=== PATIENT | female | born 1955 | race Caucasian/White ===

== ENCOUNTER 2020-07-03 13:47 | Emergency (ER) | payer OTHER ==
--- NOTE | 2020-07-03 14:04 | PDOC ---
Rapid Medical Evaluation Time Seen by Provider: 07/03/20 14:00 Medical Evaluation: 07/03/20 14:02 I have performed a brief in-person evaluation of this patient. CC: left calf pain. Cam boot x2 weeks 2/2 achilles tear PE: Left calf tenderness and swelling Orders: duplex dopplers Patient will proceed to ED for further evaluation. Discharge Disposition - Diagnosis Left leg swelling - Referrals - Patient Instructions - Post Discharge Activity
--- NOTE | 2020-07-03 14:05 | PDOC ---
History of Present Illness - General Chief Complaint: Pain Stated Complaint: SENT BY PCP Time Seen by Provider: 07/03/20 14:00 - History of Present Illness Initial Comments: 65 YOF h/o diabetes, hypothyroidism and achilles tendon rupture presents from PCP for left leg pain and swelling of 1 week duration. Patient reports leg and foot have been immobilized in compression boot for two weeks since tendon rupture. She has expected the swelling to decrease from her injury but has observed it to increase steadily over this period. She presented to PCP today who sent her to ER for DVT r/o. Denies CP, SOB, n/v/d, fever or chills, recent sick contacts, prolonged travel, h/o cancer, use of hormones or OCPs. Constitutional: No Weight Change, No Fever, No Chills, No Night Sweats, No Fatigue, No Malaise ENT/Mouth: No Hearing Changes, No Ear Pain, No Nasal Congestion, No Sinus Pain, No Hoarseness, No sore throat, No Rhinorrhea, No Swallowing Difficulty Eyes: No Eye Pain, No Swelling, No Redness, No Foreign Body, No Discharge, No Vision Changes Cardiovascular: No Chest Pain, No SOB, No PND, No Dyspnea on Exertion, No Orthopnea, No Claudication, No Edema, No Palpitations Respiratory: No Cough, No Sputum, No Wheezing, No Smoke Exposure, No Dyspnea Gastrointestinal: No Nausea, No Vomiting, No Diarrhea, No Constipation, No Pain, No Heartburn, No Anorexia, No Dysphagia, No Hematochezia, No Melena, No Flatulence, No Jaundice Genitourinary: No Dysmenorrhea, No DUB, No Dyspareunia, No Dysuria, No Urinary Frequency, No Hematuria, No Urinary Incontinence, No Urgency, No Flank Pain, No Urinary Flow Changes, No Hesitancy Musculoskeletal: No Arthralgias, No Myalgias, No Joint Swelling, No Joint Stiffness, No Back Pain, No Neck Pain, No Injury History Skin: No Skin Lesions, No Pruritis, No Hair Changes, No Breast/Skin Changes, No Nipple Discharge Neuro: No Weakness, No Numbness, No Paresthesias, No Loss of Consciousness, No Syncope, No Dizziness, No Headache, No Coordination Changes, No Recent Falls Psych: No Anxiety/Panic, No Depression, No Insomnia, No Personality Changes, No Delusions, No Rumination, No SI/HI/AH/VH, No Social Issues, No Memory Changes, No Violence/Abuse Hx., No Eating Concerns Heme/Lymph: No Bruising, No Bleeding, No Transfusions History, No Lymphadenopathy Endocrine: No Polyuria, No Polydipsia, No Temperature Intolerance Past History - Medical History Allergies/Adverse Reactions: Allergies Allergy/AdvReac Type Severity Reaction Status Date / Time No Known Allergies Allergy Unverified 07/03/20 14:06 *Physical Exam - Physical Exam General Appearance: Yes: Appropriately Dressed, Mild Distress HEENT: positive: EOMI, [place], Normal ENT Inspection, Normal Voice, Symmetrical, TMs Normal, Pharynx Normal Neck: positive: Trachea midline, Normal Thyroid Respiratory/Chest: positive: Lungs Clear, Normal Breath Sounds, Respiratory Distress, Accessory Muscle Use Cardiovascular: positive: Regular Rhythm, Regular Rate, S1, S2 Gastrointestinal/Abdominal: positive: Normal Bowel Sounds, Flat Musculoskeletal: positive: Normal Inspection Extremity: positive: Normal Capillary Refill, Swelling, Calf Tenderness, Inflammation, Other (left foot grossly swollen, warm, ttp along malleoli) Medical Decision Making - Medical Decision Making 65 YOF h/o diabetes presents with left foot and leg swelling of 2 weeks duration. - sent from associate scientist for DVT rule out - vitals stable - negative for erythma, some tenderness - US negative for DVT - will give toradol and percocet for pain control and dc to follow up Discharge - Discharge Information Problems reviewed: Yes Clinical Impression/Diagnosis: Left leg swelling Condition: Good - Admission No - Follow up/Referral - Patient Discharge Instructions Patient Printed Discharge Instructions: Achilles Tendinopathy Additional Instructions: You were seen in the ER for leg pain, and swelling. Your associate scientist was concerned for a blood clot so sent you here for evaluation. You received ultrasound of your left leg which was negative for blood clots. Please follow up with your associate scientist regarding your stay here. Self-care: Elevate your legs: Raise your legs above the level of your heart as often as you can. This will help decrease swelling and pain. Prop your legs on pillows or blankets to keep them elevated comfortably. Wear pressure stockings: These tight stockings put pressure on your legs to promote blood flow and prevent blood clots. Wear the stockings during the day. Do not wear them while you sleep. Apply heat: Heat helps decrease pain and swelling. Apply heat on the area for 20 to 30 minutes every 2 hours for as many days as directed. Stay active: Do not stand or sit for long periods of time. Ask your healthcare provider about the best exercise plan for you. Eat healthy foods: Healthy foods include fruits, vegetables, whole-grain breads, low-fat dairy products, beans, lean meats, and fish. Ask if you need to be on a special diet. Limit salt. Salt will make your body hold even more fluid. Follow up with your healthcare provider as directed: Write down your questions so you remember to ask them during your visits. Contact your healthcare provider if: You have a fever or feel more tired than usual. The veins in your legs look larger than usual. They may look full or bulging. Your legs itch or feel heavy. You have red or white areas or sores on your legs. The skin may also appear dimpled or have indentations. You are gaining weight. You have trouble moving your ankles. The swelling does not go away, or other parts of your body swell. You have questions or concerns about your condition or care. Return to the emergency department if: You cannot walk. You feel faint or confused. Your skin turns blue or martin. Your leg feels warm, tender, and painful. It may be swollen and red. You have chest pain or trouble breathing that is worse when you lie down. You suddenly feel lightheaded and have trouble breathing. You have new and sudden chest pain. You may have more pain when you take deep breaths or cough. You may also cough up blood. - Post Discharge Activity
[2020-07-03 14:06] VITALS: TEMP 98.1; BMI 38.7
[2020-07-03] MEDS ORDERED: KETOROLAC TROMETHAMINE 60 MG/2 ML VIAL IM ONE (15:50)
--- NOTE | 2020-07-03 15:50 | PDOC ---
Documentation entered by Anthony Painter SCRIBE, acting as scribe for Dajuan Ribeiro MD. Dajuan Ribeiro MD: This documentation has been prepared by the Madina stroud Xhesika, SCRIBE, under my direction and personally reviewed by me in its entirety. I confirm that the documentation accurately reflects all work, treatment, procedures, and medical decision making performed by me. Attending Attestation - Resident Resident Name: [email or web address] - ED Attending Attestation I have performed the following: I have examined & evaluated the patient, The case was reviewed & discussed with the resident, I agree w/resident's findings & plan, Exceptions are as noted - HPI HPI: 07/03/20 14:29 The patient is a 65 year old female with a significant PMH of diabetes, hypothyroidism and achilles tendon rupture who presents to the emergency department from PCP office for LLE edema and pain x1 week. Pt states she has been wearing a compression boot for two weeks since tendon rupture, however, her LLE edema has been progressively worsening. Pt states she went to her PCP office today and was advised to come to the ED to r/o DVT and further evaluation. The patient denies chest pain, shortness of breath,cough, hemoptysis, back pain, palpitations, headache and dizziness. Denies fever, chills, cough, nausea, vomiting, diarrhea and constipation. Denies dysuria, frequency, urgency and hematuria. Allergies: NKDA - Physicial Exam PE: 07/03/20 15:44 GENERAL: The patient is awake, alert, and fully oriented, Nontoxic - in no acute distress. LUNGS: Breath sounds equal, clear to auscultation bilaterally. No wheezes, no rhonchi, no rales. HEART: Regular rate and rhythm, normal S1 and S2 without murmur, rub or gallop. ABDOMEN: Soft, nontender, No guarding, no rebound. No CVA tenderness EXTREMITIES: Normal range of motion of b/l LE, +1pitting edema of RLE with mild diffuse tenderness/edema around the ankle no focal bony tenderness neg homans, slightly warm to touch, normal flexion/extension of ankle NEUROLOGICAL: No facial assymetry, Normal speech, moving all4 ext spontaneously and symmetrically PSYCH: Normal mood, normal affect. SKIN: Warm, Dry, normal turgor, - Medical Decision Making 07/03/20 15:48 no signs of DVT mild edema, likely secondary to her acchiles tendon tear dw dr. cline, agree with our mangeemnt and the edema is consistent with her injury, also notes the pt is not entirely compliant with ambulation only with the boot will dc with fu with dr. cline. return precautions were dsicussed Discharge - Discharge Information Problems reviewed: Yes Clinical Impression/Diagnosis: Left leg swelling Condition: Good Disposition: HOME - Follow up/Referral Referrals: Chi Alejandre [Primary Care Provider] - - Patient Discharge Instructions Patient Printed Discharge Instructions: Achilles Tendinopathy Additional Instructions: You were seen in the ER for leg pain, and swelling. Your outdoor education teacher was concerned for a blood clot so sent you here for evaluation. You received ultrasound of your left leg which was negative for blood clots. Please follow up with your outdoor education teacher regarding your stay here. Self-care: Elevate your legs: Raise your legs above the level of your heart as often as you can. This will help decrease swelling and pain. Prop your legs on pillows or blankets to keep them elevated comfortably. Wear pressure stockings: These tight stockings put pressure on your legs to promote blood flow and prevent blood clots. Wear the stockings during the day. Do not wear them while you sleep. Apply heat: Heat helps decrease pain and swelling. Apply heat on the area for 20 to 30 minutes every 2 hours for as many days as directed. Stay active: Do not stand or sit for long periods of time. Ask your healthcare provider about the best exercise plan for you. Eat healthy foods: Healthy foods include fruits, vegetables, whole-grain breads, low-fat dairy products, beans, lean meats, and fish. Ask if you need to be on a special diet. Limit salt. Salt will make your body hold even more fluid. Follow up with your healthcare provider as directed: Write down your questions so you remember to ask them during your visits. Contact your healthcare provider if: You have a fever or feel more tired than usual. The veins in your legs look larger than usual. They may look full or bulging. Your legs itch or feel heavy. You have red or white areas or sores on your legs. The skin may also appear dimpled or have indentations. You are gaining weight. You have trouble moving your ankles. The swelling does not go away, or other parts of your body swell. You have questions or concerns about your condition or care. Return to the emergency department if: You cannot walk. You feel faint or confused. Your skin turns blue or martin. Your leg feels warm, tender, and painful. It may be swollen and red. You have chest pain or trouble breathing that is worse when you lie down. You suddenly feel lightheaded and have trouble breathing. You have new and sudden chest pain. You may have more pain when you take deep breaths or cough. You may also cough up blood. - Post Discharge Activity
[2020-07-03] MEDS ORDERED: KETOROLAC TROMETHAMINE 60 MG/2 ML VIAL ONE (15:58)
[2020-07-03 16:10] VITALS: BP 150/79; PULSE 81
== END 2020-07-03 16:10 | disposition home or self-care (01) ==
LOC: SUPCPDRO 13:47 → JER 13:47
PROC: 3E0233Z Introduction of Anti-inflammatory into Muscle, Percutaneous Approach (ICD-10-PCS; principal; 2020-07-03)
DX: R22.42 Localized swelling, mass and lump, left lower limb (principal)
CPT/HCPCS: 93971-TC; 96372; 99284-25